=== PATIENT | female | born 1955 | race Caucasian/White ===

== ENCOUNTER 2020-10-17 03:27 | Observation (INO) ==
[2020-10-17] MEDS ORDERED: Naloxone 0.4 MG/ML INJ IVP PRN (09:32)
[2020-10-17] MEDS ORDERED: *HR* Heparin 5,000 UNIT/ML VIAL IVP PRN ×2 (10:24)
[2020-10-17] MEDS ORDERED: Acetaminophen 325 MG TABLET PO PRN (13:18)
[2020-10-17] MEDS ORDERED: Perflutren Lipid Microsphere 1.3 ML in 0.9 % Sodium Chloride 8.7 ML IVP PRN (13:18)
[2020-10-17 14:16] LABS: BUN/Creatinine Ratio 24 (6-26); Blood Urea Nitrogen 20 mg/dL (8-23); Calcium 9.7 mg/dL (8.6-10.3); Carbon Dioxide 24 mEq/L (23-29); Chloride 101 mEq/L (98-107); Glucose 146 mg/dL (70-105); Osmolality,Calculated 287 (280-300); Potassium 3.4 mEq/L (3.5-5.1); Sodium 136 mEq/L (136-145); eGFR For African Americans > 60 (> 60); eGFR For Non-African Americans > 60 (> 60)
[2020-10-17] MEDS: Heparin 25,000UNIT/250ML 1/2NS 25,000 UNIT/250 ML IV.SOLN IVC SCH (14:55)
[2020-10-17] MEDS: carvediloL 6.25 MG TABLET PO SCH (16:04)
[2020-10-17] MEDS: Aspirin Enteric Coated 81 MG Tablet PO SCH (16:04)
[2020-10-17 17:10] LABS: Prothrombin Time 11.9 Seconds (9.4-12.1)
[2020-10-17 17:17] LABS: Chol/HDL Ratio 4.2 (0-4.9)
[2020-10-17] MEDS ORDERED: Melatonin 3 MG TABLET PO PRN (18:37)
[2020-10-18 01:36] LABS: Basophils % 0.3 %; Eosinophils # 0.1 K/mcL (0.0-0.6); Eosinophils % 0.9 %; Hemoglobin 14.4 g/dL (11.5-15.4); Immature Granulocytes % 0.2 % (0-4); Lymphocytes # 3.4 K/mcL (0.6-4.6); Lymphocytes % 36.1 %; Mean Corpuscular HGB Conc 33.5 g/dL (31.6-35.5); Mean Corpuscular Hemoglobin 29.4 pg (28.0-33.3); Mean Corpuscular Volume 87.8 fL (83.0-100.0); Mean Platelet Volume 9.6 fL (9.4-12.4); Monocytes # 0.6 K/mcL (0.0-1.3); Monocytes % 6.5 %; Neutrophils # 5.3 K/mcL (1.6-8.9); Platelet Count 324 K/mcL (140-400); Red Cell Distribution Width 13.8 % (11.5-14.5); White Blood Count 9.4 K/mcL (4.3-11.1)
[2020-10-18 01:55] LABS: BUN/Creatinine Ratio 30 (6-26); Blood Urea Nitrogen 23 mg/dL (8-23); Calcium 9.9 mg/dL (8.6-10.3); Carbon Dioxide 25 mEq/L (23-29); Chloride 102 mEq/L (98-107); Glucose 110 mg/dL (70-105); Osmolality,Calculated 290 (280-300); Potassium 3.4 mEq/L (3.5-5.1); Sodium 138 mEq/L (136-145); eGFR For African Americans > 60 (> 60); eGFR For Non-African Americans > 60 (> 60)
[2020-10-18] MEDS: carvediloL 6.25 MG TABLET PO SCH ×2 (07:52→17:12)
[2020-10-18] MEDS: Aspirin Enteric Coated 81 MG Tablet PO SCH (07:53)
[2020-10-18 08:17] LABS: Estimated Average Glucose 114 mg/dl; Hemoglobin A1C 5.6 %
[2020-10-18] MEDS ORDERED: Regadenoson 0.4 MG/5 ML SYRINGE IVP ONE ×2 (11:49→11:53)
[2020-10-18 14:23] VITALS: BP 152/82; PULSE 92; TEMP 98.3; O2SAT 95
[2020-10-18] MEDS: Heparin 25,000UNIT/250ML 1/2NS 25,000 UNIT/250 ML IV.SOLN IVC SCH (15:26)
[2020-10-18] MEDS ORDERED: *HR* Heparin 5,000 UNIT/ML VIAL SQ SCH (18:00)
== END 2020-10-18 17:49 | disposition home or self-care (01) ==
LOC: CDU → SUATTDRO 09:24 → 3BNU 15:40
PROVIDERS: ADMIT Family Medicine; ATTEND Internal Medicine